=== PATIENT | female | born 1955 | race Caucasian/White ===

== ENCOUNTER 2016-04-02 21:20 | Emergency (ER) | payer OTHER ==
[2016-04-02] MEDS ORDERED: NS 0.9% 1000 ML* 1,000 ML IV ONE ×2 (22:10→22:36)
[2016-04-02 22:24] LABS: Hematocrit 42 % (35-47); Hemoglobin 13.9 g/dl (12.0-16.0); Mean Corpuscular HGB Conc 34 g/dl (31-36); Mean Corpuscular Hemoglobin 34 pg (27-31); Mean Corpuscular Volume 101 fL (80-97); Mean Platelet Volume 8 um3 (7.4-10.4); Red Blood Count 4.11 10^6/ul (4.0-5.4); Red Cell Distribution Width 14 % (10.5-15)
[2016-04-02 22:34] LABS: Albumin 4.3 g/dL (3.2-5.2); Calcium 9.3 mg/dL (8.6-10.3); EGFR African American 132.1 (>60); EGFR Non-African American 102.7 (>60); Globulin 2.5 g/dL (2-4); Total Bilirubin 0.4 mg/dL (0.2-1.0); Total Protein 6.8 g/dL (6.4-8.9)
--- NOTE | 2016-04-02 23:06 | ED ---
Juliet Santos Erika, scribed for Ghanshyam Barbour MD on 04/02/16 at 2156 . Laceration/Wound HPI - HPI Summary HPI Summary: Patient is a 60-year-old female presenting to the ED with a CC of a painful laceration to the right posterior head [employer]. Pt reports that she tripped over one of her dogs and hit her head on another dog that had a bone in its mouth. She came to the ED immediately and still has constant, uncontrolled bleeding even after applying pressure to the area. - History of Current Complaint Stated Complaint: FALL/HEAD LAC Time Seen by Provider: 04/02/16 21:20 Hx Obtained From: Patient Onset/Duration: Sudden Onset, Lasting Minutes, Still Present Alleviating: Nothing - Not alleviated by compression Timing: Constant Onset Severity: Moderate Pain Intensity: 6 Pain Scale Used: 0-10 Numeric - Allergy/Home Medications Allergies/Adverse Reactions: Allergies Allergy/AdvReac Type Severity Reaction Status Date / Time No Known Allergies Allergy Verified 06/16/14 21:24 PMH/Surg Hx/FS Hx/Imm Hx Endocrine/Hematology History: Denies: Hx Anticoagulant Therapy, Hx Diabetes Cardiovascular History: Denies: Hx Congestive Heart Failure, Hx Hypertension, Hx Pacemaker/ICD, Other Cardiovascular Problems/Disorders Respiratory History: Reports: Other Respiratory Problems/Disorders - RIGHT RIB FX History: Denies: Hx Dialysis, Hx Renal Disease Sensory History: Denies: Hx Hearing Aid Neurological History: Reports: Other Neuro Impairments/Disorders - FX'D CX.SP 2010 WAS SEEN HERE, HAD HALO,FX T12,L2 MAY 2014 Psychiatric History: Reports: Hx Panic Disorder Denies: Hx Eating Disorder, Hx of Violent Episodes Against Others - Surgical History Surgery Procedure, Year, and Place: S/P NECK FX 2010, Rt sided rib fractures, rt arm surgery Infectious Disease History: No Infectious Disease History: Denies: Traveled Outside the [place] in Last 30 Days - Family History Known Family History: Negative: Cardiac Disease - Social History Alcohol Use: Daily Alcohol Amount: 1-2 day Hx Substance Use: No Substance Use Type: Reports: None Hx Tobacco Use: Yes Smoking Status (MU): Heavy Every Day Tobacco Smoker Type: Cigarettes Amount Used/How Often: about 1pck/day Length of Time of Smoking/Using Tobacco: 36 years Have You Smoked in the Last Year: Yes Review of Systems Negative: Fever Skin: Other - painful head laceration with uncontrolled bleeding All Other Systems Reviewed And Are Negative: Yes Physical Exam Triage Information Reviewed: Yes Vital Signs On Initial Exam: Initial Vitals Temp Pulse Resp BP Pulse Ox 97 F 110 20 151/82 96 04/02/16 21:20 04/02/16 21:20 04/02/16 21:20 04/02/16 21:20 04/02/16 21:20 Vital Signs Reviewed: Yes Appearance: Positive: Well-Appearing, Pain Distress Skin: Positive: Warm, Skin Color Reflects Adequate Perfusion, Dry, Other - 3 cm laceration to the right occiput Head/Face: Positive: Normal Head/Face Inspection Eyes: Positive: EOMI, PRESTON ENT: Positive: Normal ENT inspection Neck: Positive: Supple, Nontender Respiratory/Lung Sounds: Positive: Clear to Auscultation, Breath Sounds Present Cardiovascular: Positive: Tachycardia Abdomen Description: Positive: Nontender, Soft Bowel Sounds: Positive: Present Musculoskeletal: Positive: Normal, Strength/ROM Intact Neurological: Positive: Sensory/Motor Intact, Alert, Oriented to Person Place, Time, Other - Question if pt is intoxicated Psychiatric: Positive: Other - Question if pt is intoxicated Procedures - Laceration/Wound Repair 1 Location: head - right occiput Description: Linear Length, Depth and Shape: 3 cm laceration, linear, subcutaneous with arterial bleeding Suture Type: Nylon - 4.0 Number of Sutures: 4 - Bleeding resolved. Pt refused further cleaning of the head Diagnostics - Vital Signs Vital Signs Temp Pulse Resp BP Pulse Ox 04/02/16 21:20 97 F 110 20 151/82 96 - Laboratory Lab Results: Lab Results 04/02/16 04/02/16 04/02/16 Range/Units 21:53 21:53 21:53 WBC 7.0 (3.5-10.8) 10^3/ul RBC 4.11 (4.0-5.4) 10^6/ul Hgb 13.9 (12.0-16.0) g/dl Hct 42 (35-47) % MCV 101 H (80-97) fL MCH 34 H (27-31) pg MCHC 34 (31-36) g/dl RDW 14 (10.5-15) % Plt Count 195 (150-450) 10^3/ul MPV 8 (7.4-10.4) um3 Neut % (Auto) 44.1 (38-83) % Lymph % (Auto) 45.3 (25-47) % Mclean % (Auto) 7.8 (1-9) % Eos % (Auto) 1.7 (0-6) % Baso % (Auto) 1.1 (0-2) % Absolute Neuts (auto) 3.1 (1.5-7.7) 10^3/ul Absolute Lymphs (auto) 3.1 (1.0-4.8) 10^3/ul Absolute Monos (auto) 0.5 (0-0.8) 10^3/ul Absolute Eos (auto) 0.1 (0-0.6) 10^3/ul Absolute Basos (auto) 0.1 (0-0.2) 10^3/ul Absolute Nucleated RBC 0 10^3/ul Nucleated RBC % 0 INR (Anticoag Therapy) 0.84 L (0.89-1.11) APTT 29.2 (26.0-36.3) seconds Sodium 135 (133-145) mmol/L Potassium Pending Chloride 104 (101-111) mmol/L Carbon Dioxide 18 L (22-32) mmol/L Anion Gap Pending BUN 9 (6-24) mg/dL Creatinine 0.60 (0.51-0.95) mg/dL Est GFR ( Amer) 132.1 (>60) Est GFR (Non-Af Amer) 102.7 (>60) BUN/Creatinine Ratio 15.0 (8-20) Glucose 104 H (70-100) mg/dL Calcium 9.3 (8.6-10.3) mg/dL Total Bilirubin 0.40 (0.2-1.0) mg/dL AST Pending ALT 29 (7-52) U/L Alkaline Phosphatase 93 (34-104) U/L Total Protein 6.8 (6.4-8.9) g/dL Albumin 4.3 (3.2-5.2) g/dL Globulin 2.5 (2-4) g/dL Albumin/Globulin Ratio 1.7 (1-3) Result Diagrams: 04/02/16 21:53 04/02/16 21:53 Lab Statement: Any lab studies that have been ordered have been reviewed, and results considered in the medical decision making process. Laceration Repair Course/Dx - Course Assessment/Plan: CT HEAD PENDING AT SHIFT CHANGE. STABLE IN ED. - Clinical Impression Provider Diagnoses: Head injury, Scalp laceration Discharge - Discharge Plan Condition: Stable Disposition: OTHER Discharge Disposition Comment: At shift change, CT brain pending. Signed out to Dr. Basilio Referrals: Juana Hamlin MD [Primary Care Provider] - The documentation as recorded by the Juliet cortez Erika accurately reflects the service I personally performed and the decisions made by me, Ghanshyam Barbour MD.
--- NOTE | 2016-04-02 23:07 | RAD ---
Indication: Fell with injury to the RIGHT occipital region. Scalp laceration. Comparison: June 16, 2014 Technique: Noncontrast CT vertex of skull through foramen magnum. Report: RIGHT high occipital parietal region scalp hematoma measuring up to 3.3 cm transverse by 0.6 cm in thickness. Overlying scalp laceration. Negative for calvarial or skull base fracture. Moderately severe prominence of the cerebral sulci and mild prominence of the cerebellar fissures. Unremarkable ventricles and basal cisterns. Minimal calcification at the basal ganglia. Decreased density in the periventricular and subcortical white matter while non-specific is most likely due to chronic microangiopathy. Negative for tomas matter white matter obscuration, intra or extra-axial hemorrhage, or mass effect. Unremarkable orbital contents. Clear visualized paranasal sinuses and mastoid air spaces. IMPRESSION: 1. No evidence for fracture or traumatic brain injury. 2. RIGHT high occipital parietal region scalp hematoma measuring up to 3.3 cm transverse by 0.6 cm in thickness. Overlying scalp laceration. 3. Involutional change and stigmata of probable mild chronic small vessel ischemic disease.
[2016-04-02 23:08] LABS: Potassium 4.1 mmol/L (3.5-5.0)
[2016-04-03 00:31] VITALS: BP 115/63
--- NOTE | 2016-04-25 20:02 | ED ---
Kareem Santos Karl, scribed for Reggie Basilio MD on 04/02/16 at 2319 . Progress - Progress Note Progress Note: CT Brain (Radiologist)IMPRESSION: 1. No evidence for fracture or traumatic brain injury. 2. RIGHT high occipital parietal region scalp hematoma measuring up to 3.3 cm transverse by 0.6 cm in thickness. Overlying scalp laceration. 3. Involutional change and stigmata of probable mild chronic small vessel ischemic disease. Course/Dx - Course Course Of Treatment: d/c home. stable - Diagnoses Provider Diagnoses: Head injury, Scalp laceration The documentation as recorded by the Kareem cortez Karl accurately reflects the service I personally performed and the decisions made by Praful garnett David, MD.
== END 2016-04-03 00:20 | disposition home or self-care (01) ==
LOC: ED 21:20
DX: S09.90XA Unspecified injury of head, initial encounter (principal); S01.01XA Laceration without foreign body of scalp, initial encounter; W01.0XXA Fall on same level from slipping, tripping and stumbling without subsequent striking against object, initial encounter; Y93.9 Activity, unspecified; Y92.9 Unspecified place or not applicable; Y99.9 Unspecified external cause status; F17.210 Nicotine dependence, cigarettes, uncomplicated
CPT/HCPCS: 12002; 36415; 70450; 80053; 85025; 85610; 85730; 99284

== ENCOUNTER 2024-03-23 14:33 | Observation (INO) ==
[2024-03-23] MEDS: Potassium Chlor 20 meq TAB.ER PO ONE (16:15)
[2024-03-23 16:17] LABS: ABS Basophils 0.1 10^3/uL (0.0-0.1); ABS Lymphocytes 1.2 10^3/uL (1.0-4.8); ABS Monocytes 0.5 10^3/uL (0.0-0.9); ABS Nucleated RBC 0.01 10^3/ul; Eosinophil % 0.3 %; Hematocrit 37.7 % (35-45); Lymphocyte % 21.5 %; Mean Corpuscular Hemoglobin 37.1 pg (27-33); Mean Corpuscular Hgb Conc 34.5 g/dL (31-36); Mean Corpuscular Volume 107.4 fL (80-97); Nucleated Red Blood Cells % 0.1 %/100WBC (0.0-0.8); Platelet Count 150 10^3/uL (150-450); Red Blood Count 3.51 10^6/uL (3.63-4.92); Red Cell Distribution Width 13.8 % (12-17); White Blood Count 5.8 10^3/uL (3.8-11.8)
[2024-03-23] MEDS: KCL 10 MEQ/50 ML IVPREMIX 10 MEQ/50 ML BAG IV SCH (16:20)
[2024-03-23 17:21] LABS: Albumin 3.2 g/dL (3.5-5.7); Albumin/Globulin Ratio 1.3 (1-3); Calcium 9.4 mg/dL (8.6-10.3); Creatinine, Serum 0.63 mg/dL (0.51-0.95); Globulin 2.5 g/dL (2-4); Potassium 2.3 mmol/L (3.5-5.0); Total Bilirubin 1.2 mg/dL (0.2-1.0); Total Protein 5.7 g/dL (6.4-8.9); eGFR CKD-EPI 97.8 (>60)
[2024-03-23] MEDS: Magnesium Sulfate 2 gm BAG 2 GM/50 ML BAG IVPB ONE (19:06)
[2024-03-23] MEDS ORDERED: Sulfur Hexaflouride MICROSPHR 25 MG VIAL IV PRN (20:20)
[2024-03-23] MEDS: [UNRECOGNIZED DRUG - REMARK] INH SCH (20:41)
[2024-03-23 20:55] LABS: Albumin/Globulin Ratio 1.3 (1-3); Calcium 9.3 mg/dL (8.6-10.3); Creatinine, Serum 0.54 mg/dL (0.51-0.95); Globulin 2.3 g/dL (2-4); Magnesium 1.7 mg/dL (1.9-2.7); Potassium 2.8 mmol/L (3.5-5.0); Total Bilirubin 1.2 mg/dL (0.2-1.0); Total Protein 5.3 g/dL (6.4-8.9); eGFR CKD-EPI 101.5 (>60)
[2024-03-23] MEDS: Enoxaparin 40 MG/0.4 ML SYR SUBCUT SCH (21:14)
[2024-03-23] MEDS: KCL 20 MEQ/100 ML IVPREMIX 20 MEQ/100 ML BAG IV SCH (21:14)
[2024-03-24] MEDS: Albuterol HFA INHALER 8 gm MDI INH PRN (06:04)
[2024-03-24 06:23] LABS: ABS Monocytes 0.3 10^3/uL (0.0-0.9); ABS Neutrophils 2.1 10^3/uL (1.5-7.6); ABS Nucleated RBC 0.01 10^3/ul; Eosinophil % 0.4 %; Hematocrit 32.4 % (35-45); Mean Corpuscular Hemoglobin 36.7 pg (27-33); Mean Corpuscular Volume 108.1 fL (80-97); Mean Platelet Volume 8.4 fL (7.5-11.2); Nucleated Red Blood Cells % 0.1 %/100WBC (0.0-0.8); Platelet Count 109 10^3/uL (150-450); Red Blood Count 2.99 10^6/uL (3.63-4.92); Red Cell Distribution Width 14.2 % (12-17); White Blood Count 3.5 10^3/uL (3.8-11.8)
[2024-03-24 06:36] LABS: Creatinine, Serum 0.39 mg/dL (0.51-0.95); Magnesium 1.6 mg/dL (1.9-2.7); Potassium 3.5 mmol/L (3.5-5.0); eGFR CKD-EPI 109.8 (>60)
[2024-03-24] MEDS: CMC:FLUTICAS/UMECLI/VILANT 100-62.5-25 MDI (NF) INH SCH (07:54)
[2024-03-24 08:12] LABS: INR 1.24 (0.85-1.14)
[2024-03-24] MEDS: Magnesium Sulfate 2 gm BAG 2 GM/50 ML BAG IVPB ONE ×2 (09:11→17:34)
[2024-03-24] MEDS: Potassium Chlor 20 meq TAB.ER PO ONE ×2 (09:11→17:35)
[2024-03-24 11:53] LABS: Urine Appearance Clear; Urine Bilirubin Negative (Negative); Urine Blood Negative (Negative); Urine Color Yellow; Urine Glucose Negative (Negative); Urine Ketones Trace (Negative); Urine Nitrite Negative (Negative); Urine Protein Negative (Negative); Urine Specific Gravity 1.011 (1.002-1.030); Urine Urobilinogen Negative (Negative)
[2024-03-24 11:55] LABS: Urine Bacteria Absent /HPF (Absent); Urine Red Blood Cell Trace(0-2/hpf) /HPF (0-Trace); Urine Squamous Epithelial Cell Present /HPF (Absent); Urine White Blood Cell 1+(6-10/hpf) /HPF (0-Trace)
[2024-03-24 13:47] LABS: Phosphorus 3.3 mg/dL (2.5-5.0)
[2024-03-24] MEDS ORDERED: Collagenase 250 units/gm OINT 1 tube TOPICAL SCH (15:03)
[2024-03-24] MEDS: Collagenase 250 units/gm OINT 1 tube TOPICAL SCH ×2 (16:16→16:52)
[2024-03-25 07:58] LABS: Hematocrit 32.8 % (35-45); Hemoglobin 11.3 g/dL (11.5-14.3); Mean Corpuscular Hemoglobin 37.8 pg (27-33); Mean Corpuscular Hgb Conc 34.5 g/dL (31-36); Mean Corpuscular Volume 109.5 fL (80-97); Red Blood Count 2.99 10^6/uL (3.63-4.92); Red Cell Distribution Width 14.1 % (12-17); White Blood Count 3.4 10^3/uL (3.8-11.8)
[2024-03-25 08:11] LABS: Albumin 2.7 g/dL (3.5-5.7); Albumin/Globulin Ratio 1.3 (1-3); Calcium 7.8 mg/dL (8.6-10.3); Creatinine, Serum 0.32 mg/dL (0.51-0.95); Globulin 2.1 g/dL (2-4); Magnesium 1.9 mg/dL (1.9-2.7); Potassium 3.6 mmol/L (3.5-5.0); Total Protein 4.8 g/dL (6.4-8.9); eGFR CKD-EPI 115.1 (>60)
[2024-03-25 08:37] LABS: ABS Lymphocytes 1.2 10^3/uL (1.0-4.8); ABS Monocytes 0.3 10^3/uL (0.0-0.9); ABS Neutrophils 1.8 10^3/uL (1.5-7.6); ABS Nucleated RBC 0.01 10^3/ul; Eosinophil % 0.7 %; Lymphocyte % 34.9 %; Mean Platelet Volume 8.6 fL (7.5-11.2); Nucleated Red Blood Cells % 0.2 %/100WBC (0.0-0.8); Platelet Count 99 10^3/uL (150-450)
[2024-03-25] MEDS ORDERED: Multivitamins/Minerals TAB PO SCH (09:00)
[2024-03-25 09:47] VITALS: BP 137/82
[2024-03-25] MEDS: Potassium Chlor 20 meq TAB.ER PO ONE (09:47)
== END 2024-03-25 11:00 | disposition home or self-care (01) ==
LOC: ED 14:33 → EDHOLD 14:33 → SUATTDRO 18:57 → MEDTELE 21:04
PROVIDERS: ADMIT Internal Medicine; ATTEND Student in an Organized Health Care Education/Training Program